=== PATIENT | female | born 1990 | race Caucasian/White ===

== ENCOUNTER 2024-07-07 12:26 | Emergency (ER) | payer OTHER ==
[2024-07-07 12:42] VITALS: PULSE 107; TEMP 97.4
[2024-07-07 13:12] LABS: Appearance Turbid (Clear); Bacteria Rare /HPF (None Seen); Bilirubin Negative (Negative); Blood Negative (Negative); Epithelial Cells Rare /HPF (None Seen); Glucose, Urine Negative (Negative); Hyaline Casts NONE SEEN /LPF (0-2); Ketones Negative (Negative); Leukocyte Esterase Trace (Negative); Nitrite Negative (Negative); Ph 6.5 (4.6-8.0); Protein,Urine Dip Negative (Negative); RBC 0-2 /HPF (0-5)
[2024-07-07 13:17] LABS: Absolute Neutrophil Ct (ANC) 11.98 x10^3/uL (1.56-6.13); BASOPHIL % 0.3 % (0.1-1.2); Basophil (Absolute #) 0.06 x10^3/uL (0.01-0.08); Eosinophil % 1.3 % (0.7-5.8); Eosinophil (Absolute #) 0.23 x10^3/uL (0.04-0.36); Hematocrit 44.1 % (34.1-44.9); Hemoglobin 14.3 g/dL (11.2-15.7); IMMATURE GRAN # 0.05 x10^3u/L (0.001-0.031); IMMATURE GRAN % 0.3 % (0.001-0.429); Lymphocyte (Absolute #) 4.42 x10^3/uL (1.18-3.74); Lymphocytes % 25.3 % (19.3-51.7); Mean Cell Volume 88.2 fL (79.4-94.8); Mean Corpuscular Hemoglobin 28.6 pg (25.6-32.2); Mean Corpuscular Hgb Concent. 32.4 g/dL (32.2-35.5); Monocyte (Absolute #) 0.71 x10^3/uL (0.24-0.86); Monocytes % 4.1 % (4.7-12.5); Neutrophil % 68.7 % (34.0-71.1); Platelet Count 254 x10^3/uL (182-369); Red Cell Distribution Width 14.6 % (11.7-14.4); White Blood Count 17.5 x10^3/uL (3.98-10.04)
[2024-07-07 13:32] LABS: ALBUMIN 4.1 g/dL (3.5-5.0); ANION GAP 14.7 MEQ/L (5-15); BILIRUBIN,TOTAL 0.3 mg/dL (0.2-1.3); Calcium 9.6 mg/dL (8.4-10.2); Creatinine 1 0.71 mg/dL (0.52-1.04); EST GLOMERULAR FILTRATION RATE 113.6 ML/MIN; Potassium 3.6 mmol/L (3.5-5.1); Total Protein 7.4 g/dL (6.3-8.2)
--- NOTE | 2024-07-07 13:38 | ERPHSYRPT ---
- History of Present Illness Time Seen by Provider: 07/07/24 13:20 Source: patient Exam Limitations: no limitations Patient Subjective Stated Complaint: pt had an elevated WBC on and her doctor told her to go to the ER so she came in 2 days later Triage Nursing Assessment: Pt was brought to the ER by a friend, hypertensive, tachycardic, denies pain, pulses normal, skin n/w/d, no difficulty breathing, stable gait, doesn't appear to be in any distress Physician History: 34yo f presents by private vehicle for abnormal labs. Pt reports she had labs drawn by her PCP on 07/05, received a call that she had an elevated wbc and says her PCP told her to come to the hospital. Pt reports she feels well today, has b een feeling slightly tired this week but otherwise feels well.Pt denies any fevers at home, denies any cp or sob, reports chronic cough that she attributes to smoking cigarettes. Timing/Duration: day(s) (2) Severity: mild Associated Symptoms: denies symptoms Allergies/Adverse Reactions: omeprazole [From Prilosec] Allergy (Verified 07/07/24 12:42) Sulfa (Sulfonamide Antibiotics) Allergy (Verified 07/07/24 12:42) sulfamethoxazole [From Bactrim] Allergy (Verified 07/07/24 12:42) trimethoprim [From Bactrim] Allergy (Verified 07/07/24 12:42) zolpidem [From Ambien] Allergy (Verified 07/07/24 12:42) Hx Influenza Vaccination/Date Given: No Hx Pneumococcal Vaccination/Date Given: No Travel Risk - International Travel Have you traveled outside of the country in past 3 weeks: No - Emerging Infectious Disease Are you exhibiting symptoms associated with any current EIDs: No - Review of Systems Constitutional: Fatigue, No Fever, No Chills, No Weakness Respiratory: No Symptoms Cardiac: No Symptoms Abdominal/Gastrointestinal: No Symptoms Genitourinary Symptoms: No Symptoms - Past Medical History Pertinent Past Medical History: Yes Respiratory History: Asthma Endocrine Medical History: Diabetes Type II - Past Surgical History Past Surgical History: Yes Gastrointestinal: Hernia Repair Female Surgical History: Tubal Ligation Other Surgical History: LEEP - Female History Hx Last Menstrual Period: January Hx Now: No (tubal) - Social History Smoking Status: Current every day smoker Exposure to second hand smoke: Yes Drug Use: none - Social Determinants of Health Will the patient participate in the screening: Yes Do you worry about a steady place to live?: No Do you have any problems with any of the following?: No known problems In the past 12 months,have you had to go without utilities?: No Transportation Issues: No Has anyone in your support network made you feel unsafe?: No Have you or anyone in your house had to go without enough: No - Nursing Vital Signs Nursing Vital Signs: Initial Vital Signs Temperature 97.4 F 07/07/24 12:35 Pulse Rate 107 H 07/07/24 12:35 Blood Pressure 141/84 07/07/24 12:35 O2 Sat by Pulse Oximetry 97 07/07/24 12:35 Pain Scale Pain Intensity 0 - Physical Exam General Appearance: no apparent distress, alert Ears, Nose, Throat Exam: normal ENT inspection Respiratory Exam: normal breath sounds, lungs clear, airway intact, No chest tenderness, No respiratory distress, No wheezing, No stridor Cardiovascular Exam: regular rate/rhythm, normal heart sounds, No edema Gastrointestinal/Abdomen Exam: soft, No tenderness, No distention Skin Exam: normal color, warm, dry SpO2 Interpretation: normal SpO2: 97 O2 Delivery: Room Air Ordered Tests: Active Orders 24 hr Category Date Time Status CBC W DIFF Stat Lab 07/07/24 13:11 Completed CMP Stat Lab 07/07/24 13:11 Completed UA W/RFX UR CULTURE Stat Lab 07/07/24 12:50 Completed Medication Summary Discontinued Medications Generic Name Dose Route Start Last Admin Trade Name Enrike PRN Reason Stop Dose Admin Ceftriaxone Sodium 1,000 mg 07/07/24 14:25 07/07/24 14:33 Ceftriaxone Sodium 1000 Mg Inj Vial IM 07/07/24 14:26 1,000 mg STAT ONE Administration Ceftriaxone Sodium Confirm 07/07/24 14:29 Ceftriaxone Sodium 1000 Mg Inj Vial Administered 07/07/24 14:30 Dose 1,000 mg .ROUTE .[facility] Lab/Rad Data: Laboratory Result Diagrams 07/07/24 13:11 07/07/24 13:11 Laboratory Results 07/07/24 07/07/24 07/07/24 Range/Units 13:11 13:11 12:50 WBC 17.5 H (3.98-10.04) x10^3/uL RBC 5.00 (3.93-5.22) x10^6/uL Hgb 14.3 (11.2-15.7) g/dL Hct 44.1 (34.1-44.9) % MCV 88.2 (79.4-94.8) fL MCH 28.6 (25.6-32.2) pg MCHC 32.4 (32.2-35.5) g/dL RDW 14.6 H (11.7-14.4) % Plt Count 254 (182-369) x10^3/uL MPV 11.0 (9.4-12.3) fL Gran % 68.7 (34.0-71.1) % Immature Gran % (Auto) 0.3 (0.001-0.429) % Nucleat RBC Rel Count 0.0 (0.00-0.2) % Eos # (Auto) 0.23 (0.04-0.36) x10^3/uL Immature Gran # (Auto) 0.05 H (0.001-0.031) x10^3u/L Absolute Lymphs (auto) 4.42 H (1.18-3.74) x10^3/uL Absolute Monos (auto) 0.71 (0.24-0.86) x10^3/uL Absolute Nucleated RBC 0.00 (0.00-0.012) x10^3u/L Lymphocytes % 25.3 (19.3-51.7) % Monocytes % 4.1 L (4.7-12.5) % Eosinophils % 1.3 (0.7-5.8) % Basophils % 0.3 (0.1-1.2) % Absolute Granulocytes 11.98 H (1.56-6.13) x10^3/uL Basophils # 0.06 (0.01-0.08) x10^3/uL Sodium 140 (135-145) mmol/L Potassium 3.6 (3.5-5.1) mmol/L Chloride 105 (98-107) mmol/L Carbon Dioxide 24 (22-30) mmol/L Anion Gap 14.7 (5-15) MEQ/L BUN 10 (7-17) mg/dL Creatinine 0.71 (0.52-1.04) mg/dL Estimated GFR 113.6 ML/MIN Glucose 135 H (74-106) mg/dL Calcium 9.6 (8.4-10.2) mg/dL Total Bilirubin 0.30 (0.2-1.3) mg/dL AST 31 (14-36) U/L ALT 45 H (0-35) U/L Alkaline Phosphatase 75 (38-126) U/L Serum Total Protein 7.4 (6.3-8.2) g/dL Albumin 4.1 (3.5-5.0) g/dL Urine Color Yellow (Yellow) Urine Appearance Turbid A (Clear) Urine pH 6.5 (4.6-8.0) Ur Specific [place] 1.020 (1.005-1.030) Urine Protein Negative (Negative) Urine Glucose (UA) Negative (Negative) mg/dL Urine Ketones Negative (Negative) Urine Blood Negative (Negative) Urine Nitrite Negative (Negative) Urine Bilirubin Negative (Negative) Urine Urobilinogen 1.0 A (0.2) mg/dL Ur Leukocyte Esterase Trace A (Negative) U Hyaline Cast (Auto) NONE SEEN (0-2) /LPF Urine Microscopic RBC 0-2 (0-5) /HPF Urine Microscopic WBC 3-5 (0-5) /HPF Ur Epithelial Cells Rare (None Seen) /HPF Urine Bacteria Rare A (None Seen) /HPF Urine Culture Reflexed NO (NO) - Progress Progress: improved, re-examined Counseled pt/family regarding: lab results, diagnosis, need for follow-up Medical Desision Making - Risk of complications Low Risk: Low risk of morbidity from additional dx testing or treatment - Departure Departure Disposition: Home Clinical Impression: UTI (urinary tract infection) Qualifiers: Urinary tract infection type: acute cystitis Hematuria presence: without hematuria Qualified Code(s): N30.00 - Acute cystitis without hematuria Condition: Stable Critical Care Time: No Referrals: EDDIE WASHINGTON FNP [Primary Care Provider] - Follow up/PCP as directed Additional Instructions: discharge home recommend follow up w/ PCP - Cici next week repeat labs not significantly changed from last check complete course of antibiotics for UTI return to ED if: develop fevers that do not respond to tylenol, develop chest pain, develop shortness of breath Prescriptions: Cefdinir 300 mg PO BID 6 Days #12 cap
[2024-07-07 14:29] VITALS: O2SAT 97
[2024-07-07] MEDS ORDERED: Rocephin 1000 MG INJ ONE (14:29)
[2024-07-07] MEDS: Rocephin 1000 MG INJ IM ONE (14:33)
[2024-07-07 14:38] VITALS: BP 89/48
== END 2024-07-07 14:42 | disposition home or self-care (01) ==
LOC: ED 12:26
DX: N30.00 Acute cystitis without hematuria (principal); D72.829 Elevated white blood cell count, unspecified; E11.9 Type 2 diabetes mellitus without complications; Z79.899 Other long term (current) drug therapy; Z72.0 Tobacco use
CPT/HCPCS: 36415; 80053; 81001; 85025; 96372; 99283; J0696